=== PATIENT | male | born 1960 | race Caucasian/White ===

== ENCOUNTER → 2016-09-08 | Outpatient (REF) | payer BC ==
[~2016-09-08] MED LIST: /PRAV20TA PO; /PREG100CA PO; ADVAIR200 INHALATION; ALBUTEROL INHALATION; ASPI81TA85 PO; CARV3.12 PO; CARV6.25 PO; CILO100T PO; DIABETA PO; DIABETA5 PO; EPIP0.3I10 IJ; GLUCCOSEAC TOPICAL; IBUP200C PO; LANTINJ4 SC; LASI20TA PO; LISI5TAB PO; METF1000 PO; METFORM100 PO; MULTTAB PO; OMEP20CA3 PO; SOMA350T PO; TOPR25TA PO; TRAM37.5 PO; VICO5TAB PO
[2016-09-08 11:40] LABS: ALBUMIN 3.5 GM/DL (3.2-5.2); ALBUMIN/GLOBULIN RATIO 1.13 (1.00-1.93); BILIRUBIN,TOTAL 0.3 MG/DL (0.2-1.0); CALCIUM LEVEL 9.3 MG/DL (8.5-10.1); CREATININE FOR GFR 1.63 MG/DL (0.70-1.30); GLOMERULAR FILTRATION RATE 46.7 (>56); TOTAL PROTEIN 6.6 GM/DL (6.4-8.2)
[2016-09-08 11:44] LABS: POTASSIUM SERUM 5.2 MEQ/L (3.5-5.1)
== END ==
LOC: M SFHCCLAY 07:25
PROVIDERS: ATTEND Family Medicine
DX: E11.40 Type 2 diabetes mellitus with diabetic neuropathy, unspecified (principal); R19.7 Diarrhea, unspecified

== ENCOUNTER → 2016-09-22 | Outpatient (REF) | payer BC ==
[2016-09-22 11:56] LABS: MEAN CORPUSCULAR HEMOGLOBIN 27.8 pg (27.0-33.0); MEAN CORPUSCULAR HGB CONC 32.5 g/dl (32.0-36.5); MEAN CORPUSCULAR VOLUME 85.6 fl (80.0-96.0); PLATELET COUNT, AUTOMATED 180 k/mm3 (150-450); RED CELL DISTRIBUTION WIDTH 13.6 % (11.5-14.5); WHITE BLOOD COUNT 9.4 K/mm3 (4.0-10.0)
[2016-09-22 12:15] LABS: CALCIUM LEVEL 8.3 MG/DL (8.5-10.1); CREATININE FOR GFR 1.52 MG/DL (0.70-1.30); GLOMERULAR FILTRATION RATE 50.6 (>56); POTASSIUM SERUM 4.4 MEQ/L (3.5-5.1)
[2016-09-22 13:31] LABS: BANDS 1 % (< 11); BASOPHILS 2 % (0-4); EOSINOPHILS 3 % (0-5)
[2016-09-22 13:34] LABS: ANISOCYTOSIS 1+; HYPOCHROMASIA 1+
== END ==
LOC: M SFHCCLAY 07:53
PROVIDERS: ATTEND Family Medicine
DX: L03.115 Cellulitis of right lower limb (principal); L97.511 Non-pressure chronic ulcer of other part of right foot limited to breakdown of skin

== ENCOUNTER 2017-10-06 00:06 | Inpatient (IN) | payer BC, OTHER ==
[2017-10-06 02:24] LABS: BASO % 0.1 % (0.0-1.0); HEMATOCRIT 33.7 % (42.0-52.0); HEMOGLOBIN 10.8 g/dl (13.5-17.5); IMMATURE GRANULOCYTE % 0.4 % (0-3.0); LYMPH # 0.5 10^3/uL (1.5-4.5); LYMPH % 3.2 % (24.0-44.0); MEAN CORPUSCULAR HEMOGLOBIN 26.8 pg (27.0-33.0); MEAN CORPUSCULAR VOLUME 83.6 fl (80.0-96.0); MONO # 0.5 10^3/uL (0.0-0.8); MONO % 3.4 % (0.0-5.0); NEUTROPHILS % 92.9 % (36.0-66.0); PLATELET COUNT, AUTOMATED 179 10^3/uL (150-450); RED BLOOD COUNT 4.03 10^6/uL (4.30-6.10); RED CELL DISTRIBUTION WIDTH 14.6 % (11.5-14.5)
[2017-10-06] MEDS ORDERED: ONDANSETRON 4MG/2ML VIAL (J2405) IV (02:45)
[2017-10-06 02:47] LABS: ANION GAP 9 MEQ/L (8-16); BLOOD UREA NITROGEN 73 MG/DL (7-18); CALCIUM LEVEL 8.5 MG/DL (8.5-10.1); CARBON DIOXIDE LEVEL 22 MEQ/L (21-32); CHLORIDE LEVEL 100 MEQ/L (98-107); CK-MB VALUE MASS 6.8 NG/ML (<3.6); CPK CREATINE PHOSPHOKINASE 485 U/L (39-308); CREATININE FOR GFR 2.79 MG/DL (0.70-1.30); GLUCOSE, FASTING 313 MG/DL (70-100); MAGNESIUM LEVEL 2.2 MG/DL (1.8-2.4); SODIUM LEVEL 131 MEQ/L (136-145); TROPONIN I 0.26 NG/ML (< 0.10)
[2017-10-06 02:50] LABS: POTASSIUM SERUM 5.9 MEQ/L (3.5-5.1)
[2017-10-06] MEDS ORDERED: DEXTROSE 50% 50 ML SYRINGE IV ×2 (03:00→09:00)
[2017-10-06] MEDS ORDERED: cefTRIAXone SOD 1 GM in D5W MINI-BAG PLUS 50 ML IV ×2 (03:00→09:00)
[2017-10-06] MEDS ORDERED: GLUCOSE 4 GM CHEW TABLET PO (03:00)
[2017-10-06] MEDS ORDERED: ALBUTEROL SULFATE 2.5 MG/0.5 ML INH NEB SOLN NEB (03:00)
[2017-10-06] MEDS ORDERED: GLUCAGON FOR INJ 1 MG VIAL (J1610) SC (03:00)
[2017-10-06] MEDS: SODIUM CHLORIDE 0.9% 1000 ML IV (03:08)
[2017-10-06] MEDS: NS 1,000 ML IV (04:11)
[2017-10-06] MEDS: PIPERACILLIN/TAZOBACTAM SOD 2.25 GM in D5W MINI-BAG PLUS 50 ML IV ×3 (06:52→18:03)
[2017-10-06] MEDS: IPRATROPIUM 0.5MG/ALBUTEROL 2.5MG INH SOL UD 3ML (DUONEB)(J7620) NEB ×3 (07:24→23:54)
[2017-10-06] MEDS: SYMBICORT 80/4.5MCG INHALER 6GM INH ×2 (07:24→20:51)
[2017-10-06 07:46] LABS: BASO % 0.1 % (0.0-1.0); HEMATOCRIT 31.4 % (42.0-52.0); IMMATURE GRANULOCYTE % 0.4 % (0-3.0); LYMPH # 0.4 10^3/uL (1.5-4.5); LYMPH % 3.2 % (24.0-44.0); MEAN CORPUSCULAR HEMOGLOBIN 26.5 pg (27.0-33.0); MEAN CORPUSCULAR HGB CONC 31.8 g/dl (32.0-36.5); MEAN CORPUSCULAR VOLUME 83.1 fl (80.0-96.0); MONO # 0.3 10^3/uL (0.0-0.8); MONO % 2.4 % (0.0-5.0); NEUTROPHILS # 10.6 10^3/uL (1.8-7.7); NEUTROPHILS % 93.9 % (36.0-66.0); PLATELET COUNT, AUTOMATED 181 10^3/uL (150-450); RED BLOOD COUNT 3.78 10^6/uL (4.30-6.10); RED CELL DISTRIBUTION WIDTH 14.6 % (11.5-14.5); WHITE BLOOD COUNT 11.3 10^3/uL (4.0-10.0)
[2017-10-06 08:04] LABS: LACTIC ACID SEPSIS PROTOCOL 1.4 MMOL/L (0.4-2.0)
[2017-10-06 08:06] LABS: ALBUMIN 1.9 GM/DL (3.2-5.2); ALKALINE PHOSPHATASE 94 U/L (45-117); ALT/SGPT 21 U/L (12-78); ANION GAP 11 MEQ/L (8-16); AST/SGOT 24 U/L (7-37); BILIRUBIN,TOTAL 0.7 MG/DL (0.2-1.0); BLOOD UREA NITROGEN 75 MG/DL (7-18); CARBON DIOXIDE LEVEL 19 MEQ/L (21-32); CHLORIDE LEVEL 102 MEQ/L (98-107); CK-MB VALUE MASS 5.8 NG/ML (<3.6); CPK CREATINE PHOSPHOKINASE 398 U/L (39-308); CREATININE FOR GFR 2.61 MG/DL (0.70-1.30); GLUCOSE, FASTING 370 MG/DL (70-100); MB/CK RELATIVE INDEX 1.45 (< OR =4); SODIUM LEVEL 132 MEQ/L (136-145); TOTAL PROTEIN 6.7 GM/DL (6.4-8.2); TROPONIN I 0.13 NG/ML (< 0.10)
[2017-10-06 08:36] LABS: POTASSIUM SERUM 6.1 MEQ/L (3.5-5.1)
[2017-10-06] MEDS: AZITHROMYCIN 250 MG TAB PO (08:44)
[2017-10-06] MEDS: ASPIRIN 81 MG ENTERIC TAB PO (08:44)
[2017-10-06] MEDS: PRAVASTATIN 20 MG TAB PO (08:44)
[2017-10-06] MEDS: PREGABALIN 100 MG CAP (LYRICA) PO ×2 (08:44→21:33)
[2017-10-06] MEDS: HEPARIN SOD (PORCINE) 5000 UNITS/ML VIAL SC ×2 (08:45→21:34)
[2017-10-06] MEDS: LEVEMIR (INSULIN DETEMIR) 1 UNITS/0.01ML SC (08:45)
[2017-10-06] MEDS: ALBUTEROL SULFATE 2.5 MG/0.5 ML INH NEB SOLN NEB (09:20)
[2017-10-06 09:43] LABS: ABG BASE EXCESS -8.4 (-2.0-2.0); ABG HCO3 17.8 MEQ/L (22.0-26.0); ABG O2 SATURATION 97.9 % (95.0-99.0); ABG PARTIAL PRESSURE CO2 38.9 mmHg (35.0-45.0); ABG PARTIAL PRESSURE O2 111.7 mmHg (75.0-100.0); ABG STANDARD HCO3 17.7 MEQ/L (22.0-26.0); ABG pH (ARTERIAL) 7.278 UNITS (7.350-7.450)
[2017-10-06] MEDS: CALCIUM GLUCONATE 1,000 MG in D5W MINI-BAG PLUS 100 ML IV (09:43)
[2017-10-06] MEDS: SOD POLYSTYRENE SULFONATE SUSP 15 GM/60 ML UD PO (09:43)
[2017-10-06] MEDS: HumaLOG INSULIN (NovoLOG) PER UNIT SC (12:33)
[2017-10-06 13:04] LABS: ANION GAP 12 MEQ/L (8-16); BLOOD UREA NITROGEN 83 MG/DL (7-18); CALCIUM LEVEL 7.8 MG/DL (8.5-10.1); CARBON DIOXIDE LEVEL 19 MEQ/L (21-32); CHLORIDE LEVEL 102 MEQ/L (98-107); CK-MB VALUE MASS 6.3 NG/ML (<3.6); CPK CREATINE PHOSPHOKINASE 393 U/L (39-308); CREATININE FOR GFR 2.58 MG/DL (0.70-1.30); GLOMERULAR FILTRATION RATE 27.4 (>56); NT-PRO BNP 2950 PG/ML (<125); SODIUM LEVEL 133 MEQ/L (136-145); TROPONIN I 0.09 NG/ML (< 0.10)
[2017-10-06 13:06] LABS: GLUCOSE, FASTING 467 MG/DL (70-100)
[2017-10-06 13:16] LABS: BEDSIDE GLUCOSE 337 MG/DL (70-105)
[2017-10-06 13:16] LABS: BEDSIDE GLUCOSE 465 MG/DL (70-105)
[2017-10-06] MEDS: SODIUM BICARBONATE 75 MEQ in NS 0.45% 1,000 ML IV (14:28)
[2017-10-06] MEDS ORDERED: LEVEMIR (INSULIN DETEMIR) 1 UNITS/0.01ML SC (15:00)
[2017-10-06] MEDS: NS 500 ML IV (17:00)
[2017-10-06] MEDS: INSULIN HUMAN REGULAR 100 UNITS in NS 99 ML IV (17:05)
[2017-10-06] MEDS: INSULIN IV RATE CHANGE DOCUMENTATION ML/HR XX ×3 (17:05→20:35)
[2017-10-06] MEDS: HumuLIN R (REGULAR) INSULIN (NovoLIN R) **100U/ML** PER UNIT IV (17:10)
[2017-10-06 17:46] LABS: BEDSIDE GLUCOSE 564 MG/DL (70-105)
[2017-10-06 18:01] LABS: ANION GAP 11 MEQ/L (8-16); BLOOD UREA NITROGEN 89 MG/DL (7-18); CALCIUM LEVEL 7.6 MG/DL (8.5-10.1); CARBON DIOXIDE LEVEL 21 MEQ/L (21-32); CHLORIDE LEVEL 100 MEQ/L (98-107); CREATININE FOR GFR 2.81 MG/DL (0.70-1.30); GLOMERULAR FILTRATION RATE 24.8 (>56); SODIUM LEVEL 132 MEQ/L (136-145)
[2017-10-06 18:06] LABS: GLUCOSE, FASTING 580 MG/DL (70-100); POTASSIUM SERUM 5.9 MEQ/L (3.5-5.1)
[2017-10-06 18:40] LABS: BEDSIDE GLUCOSE 538 MG/DL (70-105)
[2017-10-06 19:22] LABS: BEDSIDE GLUCOSE CONFIRMATION 523 MG/DL (LESS THAN 200)
[2017-10-06 19:30] LABS: BEDSIDE GLUCOSE 491 MG/DL (70-105)
[2017-10-06 20:34] LABS: BEDSIDE GLUCOSE 457 MG/DL (70-105)
[2017-10-06 20:51] LABS: CREATININE,RANDOM URINE 73.6 MG/DL
[2017-10-06 20:51] LABS: POTASSIUM RANDOM URINE 37.1 MEQ/L; SODIUM,RANDOM URINE 24 MEQ/L
[2017-10-06] MEDS ORDERED: HumaLOG INSULIN (NovoLOG) PER UNIT SC (21:00)
[2017-10-06 21:53] LABS: BEDSIDE GLUCOSE 387 MG/DL (70-105)
[2017-10-06] MEDS: PATIROMER SORBITEX CALCIUM 8.4 GM POWDER PACKET (VELTASSA) PO (23:45)
[2017-10-07] MEDS: PIPERACILLIN/TAZOBACTAM SOD 2.25 GM in D5W MINI-BAG PLUS 50 ML IV ×4 (00:02→17:25)
[2017-10-07] MEDS: INSULIN HUMAN REGULAR 100 UNITS in NS 99 ML IV (00:40)
[2017-10-07 00:49] LABS: BEDSIDE GLUCOSE 278 MG/DL (70-105)
[2017-10-07 00:49] LABS: BEDSIDE GLUCOSE 237 MG/DL (70-105)
[2017-10-07 00:49] LABS: BEDSIDE GLUCOSE 305 MG/DL (70-105)
[2017-10-07] MEDS: FUROSEMIDE 20 MG/2 ML VIAL (J1940) IV (00:51)
[2017-10-07 02:23] LABS: BEDSIDE GLUCOSE 579 MG/DL (70-105)
[2017-10-07 02:26] LABS: BEDSIDE GLUCOSE 192 MG/DL (70-105)
[2017-10-07 03:19] LABS: BEDSIDE GLUCOSE 166 MG/DL (70-105)
[2017-10-07 04:22] LABS: BEDSIDE GLUCOSE 134 MG/DL (70-105)
[2017-10-07 04:35] LABS: BASO % 0.1 % (0.0-1.0); HEMATOCRIT 30.5 % (42.0-52.0); HEMOGLOBIN 9.9 g/dl (13.5-17.5); IMMATURE GRANULOCYTE % 0.7 % (0-3.0); LYMPH # 0.7 10^3/uL (1.5-4.5); LYMPH % 6.9 % (24.0-44.0); MEAN CORPUSCULAR HEMOGLOBIN 26.7 pg (27.0-33.0); MEAN CORPUSCULAR HGB CONC 32.5 g/dl (32.0-36.5); MEAN CORPUSCULAR VOLUME 82.2 fl (80.0-96.0); MONO # 0.5 10^3/uL (0.0-0.8); MONO % 4.8 % (0.0-5.0); NEUTROPHILS # 8.4 10^3/uL (1.8-7.7); NEUTROPHILS % 87.5 % (36.0-66.0); PLATELET COUNT, AUTOMATED 192 10^3/uL (150-450); RED BLOOD COUNT 3.71 10^6/uL (4.30-6.10); RED CELL DISTRIBUTION WIDTH 14.3 % (11.5-14.5); WHITE BLOOD COUNT 9.7 10^3/uL (4.0-10.0)
[2017-10-07 05:00] LABS: ANION GAP 11 MEQ/L (8-16); BLOOD UREA NITROGEN 98 MG/DL (7-18); CALCIUM LEVEL 8.6 MG/DL (8.5-10.1); CARBON DIOXIDE LEVEL 22 MEQ/L (21-32); CHLORIDE LEVEL 104 MEQ/L (98-107); CREATININE FOR GFR 2.55 MG/DL (0.70-1.30); GLOMERULAR FILTRATION RATE 27.7 (>56); GLUCOSE, FASTING 122 MG/DL (70-100); POTASSIUM SERUM 4.2 MEQ/L (3.5-5.1); SODIUM LEVEL 137 MEQ/L (136-145)
[2017-10-07 05:15] LABS: BEDSIDE GLUCOSE 122 MG/DL (70-105)
[2017-10-07 07:01] LABS: BEDSIDE GLUCOSE 125 MG/DL (70-105)
[2017-10-07 07:01] LABS: BEDSIDE GLUCOSE 118 MG/DL (70-105)
[2017-10-07] MEDS: SYMBICORT 80/4.5MCG INHALER 6GM INH ×2 (07:49→20:17)
[2017-10-07] MEDS: IPRATROPIUM 0.5MG/ALBUTEROL 2.5MG INH SOL UD 3ML (DUONEB)(J7620) NEB ×3 (08:00→23:59)
[2017-10-07 08:19] LABS: BEDSIDE GLUCOSE 148 MG/DL (70-105)
[2017-10-07] MEDS: PRAVASTATIN 20 MG TAB PO (08:40)
[2017-10-07] MEDS: PREGABALIN 100 MG CAP (LYRICA) PO ×2 (08:40→21:52)
[2017-10-07] MEDS: ASPIRIN 81 MG ENTERIC TAB PO (08:40)
[2017-10-07] MEDS: AZITHROMYCIN 250 MG TAB PO (08:40)
[2017-10-07] MEDS: HEPARIN SOD (PORCINE) 5000 UNITS/ML VIAL SC ×2 (08:41→21:54)
[2017-10-07] MEDS: LEVEMIR (INSULIN DETEMIR) 1 UNITS/0.01ML SC ×3 (08:41→21:53)
[2017-10-07 10:34] LABS: BEDSIDE GLUCOSE 302 MG/DL (70-105)
[2017-10-07 11:22] LABS: BEDSIDE GLUCOSE 330 MG/DL (70-105)
[2017-10-07] MEDS: HumaLOG INSULIN (NovoLOG) PER UNIT SC ×3 (11:43→21:53)
[2017-10-07 12:27] LABS: URIC ACID 11.8 MG/DL (3.5-7.2)
[2017-10-07 16:22] LABS: BEDSIDE GLUCOSE 419 MG/DL (70-105)
[2017-10-07 16:41] LABS: OSMOLALITY URINE 522 MOSM/KG (500-800)
[2017-10-07 16:59] LABS: CREATININE,RANDOM URINE 65.2 MG/DL; SODIUM,RANDOM URINE 34 MEQ/L
[2017-10-07 16:59] LABS: URIC ACID,RANDOM URINE 54.2 MG/DL
[2017-10-07] MEDS: ALLOPURINOL 300 MG TAB PO (19:24)
[2017-10-07 22:03] LABS: BEDSIDE GLUCOSE 353 MG/DL (70-105)
[2017-10-08] MEDS: PIPERACILLIN/TAZOBACTAM SOD 2.25 GM in D5W MINI-BAG PLUS 50 ML IV ×5 (00:16→23:17)
[2017-10-08 04:33] LABS: EOS % 0.4 % (0.0-3.0); HEMATOCRIT 30.1 % (42.0-52.0); HEMOGLOBIN 9.6 g/dl (13.5-17.5); IMMATURE GRANULOCYTE % 1.5 % (0-3.0); LYMPH # 1.1 10^3/uL (1.5-4.5); LYMPH % 20.1 % (24.0-44.0); MEAN CORPUSCULAR HEMOGLOBIN 26.2 pg (27.0-33.0); MEAN CORPUSCULAR HGB CONC 31.9 g/dl (32.0-36.5); MONO # 0.5 10^3/uL (0.0-0.8); MONO % 9.3 % (0.0-5.0); NEUTROPHILS # 3.7 10^3/uL (1.8-7.7); NEUTROPHILS % 68.7 % (36.0-66.0); PLATELET COUNT, AUTOMATED 222 10^3/uL (150-450); RED BLOOD COUNT 3.67 10^6/uL (4.30-6.10); RED CELL DISTRIBUTION WIDTH 14.4 % (11.5-14.5); WHITE BLOOD COUNT 5.4 10^3/uL (4.0-10.0)
[2017-10-08 04:50] LABS: ANION GAP 8 MEQ/L (8-16); BLOOD UREA NITROGEN 102 MG/DL (7-18); CALCIUM LEVEL 8.4 MG/DL (8.5-10.1); CARBON DIOXIDE LEVEL 23 MEQ/L (21-32); CHLORIDE LEVEL 105 MEQ/L (98-107); CREATININE FOR GFR 2.41 MG/DL (0.70-1.30); GLOMERULAR FILTRATION RATE 29.6 (>56); GLUCOSE, FASTING 260 MG/DL (70-100); POTASSIUM SERUM 4.5 MEQ/L (3.5-5.1); SODIUM LEVEL 136 MEQ/L (136-145)
[2017-10-08] MEDS: HumaLOG INSULIN (NovoLOG) PER UNIT SC ×4 (07:49→20:29)
[2017-10-08] MEDS: ALLOPURINOL 300 MG TAB PO (07:50)
[2017-10-08] MEDS: AZITHROMYCIN 250 MG TAB PO (07:50)
[2017-10-08] MEDS: HEPARIN SOD (PORCINE) 5000 UNITS/ML VIAL SC ×2 (07:50→20:36)
[2017-10-08] MEDS: PREGABALIN 100 MG CAP (LYRICA) PO ×2 (07:51→20:36)
[2017-10-08] MEDS: ASPIRIN 81 MG ENTERIC TAB PO (07:51)
[2017-10-08] MEDS: PRAVASTATIN 20 MG TAB PO (07:51)
[2017-10-08] MEDS: IPRATROPIUM 0.5MG/ALBUTEROL 2.5MG INH SOL UD 3ML (DUONEB)(J7620) NEB ×4 (08:00→23:48)
[2017-10-08] MEDS: SYMBICORT 80/4.5MCG INHALER 6GM INH ×2 (08:06→20:02)
[2017-10-08] MEDS: LEVEMIR (INSULIN DETEMIR) 1 UNITS/0.01ML SC ×2 (08:17→20:37)
[2017-10-08 10:34] LABS: ESTIMATED AVERAGE GLUCOSE 209 MG/DL (60-110); HEMOGLOBIN A1c 8.9 %
[2017-10-08] MEDS: FUROSEMIDE 100 MG/10 ML VIAL (J1940) IV (10:57)
[2017-10-08 11:44] LABS: BEDSIDE GLUCOSE 167 MG/DL (70-105)
[2017-10-08 17:18] LABS: BEDSIDE GLUCOSE 126 MG/DL (70-105)
[2017-10-08 20:44] LABS: BEDSIDE GLUCOSE 171 MG/DL (70-105)
[2017-10-09] MEDS: PIPERACILLIN/TAZOBACTAM SOD 2.25 GM in D5W MINI-BAG PLUS 50 ML IV ×3 (05:28→17:16)
[2017-10-09 06:04] LABS: BASO % 0.2 % (0.0-1.0); EOS # 0.2 10^3/uL (0.0-0.50); HEMATOCRIT 31.8 % (42.0-52.0); IMMATURE GRANULOCYTE % 2.6 % (0-3.0); LYMPH # 1.6 10^3/uL (1.5-4.5); LYMPH % 37.9 % (24.0-44.0); MEAN CORPUSCULAR HEMOGLOBIN 26.2 pg (27.0-33.0); MEAN CORPUSCULAR HGB CONC 31.4 g/dl (32.0-36.5); MEAN CORPUSCULAR VOLUME 83.5 fl (80.0-96.0); MONO # 0.5 10^3/uL (0.0-0.8); MONO % 12.8 % (0.0-5.0); NEUTROPHILS # 1.8 10^3/uL (1.8-7.7); NEUTROPHILS % 42.5 % (36.0-66.0); PLATELET COUNT, AUTOMATED 245 10^3/uL (150-450); RED BLOOD COUNT 3.81 10^6/uL (4.30-6.10); RED CELL DISTRIBUTION WIDTH 14.5 % (11.5-14.5); WHITE BLOOD COUNT 4.2 10^3/uL (4.0-10.0)
[2017-10-09 06:31] LABS: ANION GAP 8 MEQ/L (8-16); BLOOD UREA NITROGEN 101 MG/DL (7-18); C REACTIVE PROTEIN QUANTITATIV 6.99 MG/DL (0.00-0.30); CALCIUM LEVEL 8.7 MG/DL (8.5-10.1); CARBON DIOXIDE LEVEL 25 MEQ/L (21-32); CHLORIDE LEVEL 111 MEQ/L (98-107); CREATININE FOR GFR 1.99 MG/DL (0.70-1.30); GLOMERULAR FILTRATION RATE 36.9 (>56); GLUCOSE, FASTING 94 MG/DL (70-100); POTASSIUM SERUM 4.3 MEQ/L (3.5-5.1); SODIUM LEVEL 144 MEQ/L (136-145); URIC ACID 9.8 MG/DL (3.5-7.2)
[2017-10-09] MEDS: HumaLOG INSULIN (NovoLOG) PER UNIT SC ×4 (07:48→21:16)
[2017-10-09] MEDS: IPRATROPIUM 0.5MG/ALBUTEROL 2.5MG INH SOL UD 3ML (DUONEB)(J7620) NEB ×2 (08:00→15:02)
[2017-10-09] MEDS: ASPIRIN 81 MG ENTERIC TAB PO (09:00)
[2017-10-09] MEDS: ALLOPURINOL 300 MG TAB PO (09:00)
[2017-10-09] MEDS: PREGABALIN 100 MG CAP (LYRICA) PO ×2 (09:00→21:15)
[2017-10-09] MEDS: AZITHROMYCIN 250 MG TAB PO (09:00)
[2017-10-09] MEDS: PRAVASTATIN 20 MG TAB PO (09:00)
[2017-10-09] MEDS: HEPARIN SOD (PORCINE) 5000 UNITS/ML VIAL SC ×2 (09:01→21:16)
[2017-10-09] MEDS: SYMBICORT 80/4.5MCG INHALER 6GM INH ×2 (09:23→20:06)
[2017-10-09] MEDS: FUROSEMIDE 100 MG/10 ML VIAL (J1940) IV (10:50)
[2017-10-09] MEDS: LEVEMIR (INSULIN DETEMIR) 1 UNITS/0.01ML SC ×2 (10:50→21:17)
[2017-10-09 12:30] LABS: BEDSIDE GLUCOSE 79 MG/DL (70-105)
[2017-10-09 17:07] LABS: BEDSIDE GLUCOSE 86 MG/DL (70-105)
[2017-10-09] MEDS: ACETAMINOPHEN 500 MG TAB PO (17:58)
[2017-10-09 20:46] LABS: BEDSIDE GLUCOSE 127 MG/DL (70-105)
[2017-10-10] MEDS: PIPERACILLIN/TAZOBACTAM SOD 2.25 GM in D5W MINI-BAG PLUS 50 ML IV ×4 (00:21→17:15)
[2017-10-10 05:48] LABS: BEDSIDE GLUCOSE 55 MG/DL (70-105)
[2017-10-10 06:15] LABS: BEDSIDE GLUCOSE 79 MG/DL (70-105)
[2017-10-10 06:47] LABS: BASO % 0.6 % (0.0-1.0); EOS # 0.4 10^3/uL (0.0-0.50); EOS % 9.2 % (0.0-3.0); HEMATOCRIT 34.9 % (42.0-52.0); HEMOGLOBIN 10.9 g/dl (13.5-17.5); IMMATURE GRANULOCYTE % 4.2 % (0-3.0); LYMPH # 1.5 10^3/uL (1.5-4.5); LYMPH % 31.9 % (24.0-44.0); MEAN CORPUSCULAR HEMOGLOBIN 26.5 pg (27.0-33.0); MEAN CORPUSCULAR HGB CONC 31.2 g/dl (32.0-36.5); MEAN CORPUSCULAR VOLUME 84.7 fl (80.0-96.0); MONO # 0.6 10^3/uL (0.0-0.8); MONO % 12.9 % (0.0-5.0); NEUTROPHILS % 41.2 % (36.0-66.0); PLATELET COUNT, AUTOMATED 313 10^3/uL (150-450); RED BLOOD COUNT 4.12 10^6/uL (4.30-6.10); RED CELL DISTRIBUTION WIDTH 14.5 % (11.5-14.5); WHITE BLOOD COUNT 4.8 10^3/uL (4.0-10.0)
[2017-10-10 07:06] LABS: ANION GAP 3 MEQ/L (8-16); BLOOD UREA NITROGEN 81 MG/DL (7-18); C REACTIVE PROTEIN QUANTITATIV 4.18 MG/DL (0.00-0.30); CARBON DIOXIDE LEVEL 30 MEQ/L (21-32); CHLORIDE LEVEL 110 MEQ/L (98-107); CREATININE FOR GFR 1.55 MG/DL (0.70-1.30); GLOMERULAR FILTRATION RATE 49.3 (>56); GLUCOSE, FASTING 46 MG/DL (70-100); POTASSIUM SERUM 4.7 MEQ/L (3.5-5.1); SODIUM LEVEL 143 MEQ/L (136-145)
[2017-10-10] MEDS: HumaLOG INSULIN (NovoLOG) PER UNIT SC ×4 (07:30→21:40)
[2017-10-10] MEDS: IPRATROPIUM 0.5MG/ALBUTEROL 2.5MG INH SOL UD 3ML (DUONEB)(J7620) NEB ×4 (08:00→22:55)
[2017-10-10] MEDS: LEVEMIR (INSULIN DETEMIR) 1 UNITS/0.01ML SC ×2 (08:27→21:41)
[2017-10-10] MEDS: AZITHROMYCIN 250 MG TAB PO (08:38)
[2017-10-10] MEDS: FUROSEMIDE 40 MG TAB PO (08:38)
[2017-10-10] MEDS: PREGABALIN 100 MG CAP (LYRICA) PO ×2 (08:38→21:39)
[2017-10-10] MEDS: ALLOPURINOL 300 MG TAB PO (08:38)
[2017-10-10] MEDS: PRAVASTATIN 20 MG TAB PO (08:38)
[2017-10-10] MEDS: ASPIRIN 81 MG ENTERIC TAB PO (08:38)
[2017-10-10] MEDS: HEPARIN SOD (PORCINE) 5000 UNITS/ML VIAL SC ×2 (08:39→21:40)
[2017-10-10] MEDS: SYMBICORT 80/4.5MCG INHALER 6GM INH ×2 (09:07→20:35)
[2017-10-10 11:35] LABS: BEDSIDE GLUCOSE 112 MG/DL (70-105)
[2017-10-10 17:15] LABS: BEDSIDE GLUCOSE 186 MG/DL (70-105)
[2017-10-10 20:26] LABS: BEDSIDE GLUCOSE 272 MG/DL (70-105)
[2017-10-11] MEDS: PIPERACILLIN/TAZOBACTAM SOD 2.25 GM in D5W MINI-BAG PLUS 50 ML IV ×3 (00:40→12:44)
[2017-10-11 05:40] LABS: HEMATOCRIT 33.7 % (42.0-52.0); HEMOGLOBIN 10.8 g/dl (13.5-17.5); MEAN CORPUSCULAR HEMOGLOBIN 26.7 pg (27.0-33.0); MEAN CORPUSCULAR VOLUME 83.2 fl (80.0-96.0); PLATELET COUNT, AUTOMATED 314 10^3/uL (150-450); RED BLOOD COUNT 4.05 10^6/uL (4.30-6.10); RED CELL DISTRIBUTION WIDTH 14.4 % (11.5-14.5); WHITE BLOOD COUNT 5.3 10^3/uL (4.0-10.0)
[2017-10-11 05:44] LABS: ADD MANUAL DIFFER YES; DIFF SLIDE NUMBER 14; POS COUNT POS FLAG; POSITIVE MORPH POS FLAG
[2017-10-11 05:54] LABS: ANION GAP 4 MEQ/L (8-16); BLOOD UREA NITROGEN 65 MG/DL (7-18); C REACTIVE PROTEIN QUANTITATIV 3.36 MG/DL (0.00-0.30); CALCIUM LEVEL 8.7 MG/DL (8.5-10.1); CARBON DIOXIDE LEVEL 28 MEQ/L (21-32); CHLORIDE LEVEL 108 MEQ/L (98-107); CREATININE FOR GFR 1.54 MG/DL (0.70-1.30); GLOMERULAR FILTRATION RATE 49.6 (>56); GLUCOSE, FASTING 204 MG/DL (70-100); SODIUM LEVEL 140 MEQ/L (136-145)
[2017-10-11 05:55] LABS: POTASSIUM SERUM 5.5 MEQ/L (3.5-5.1)
[2017-10-11 06:56] LABS: BANDS 5 % (< 11); EOSINOPHILS 12 % (0-5); LYMPHOCYTES 26 % (16-52); MONOCYTES 2 % (0-8); MYELOCYTES 4 % (0-0); NEUTROPHILS 51 % (35-75); PLATELET ESTIMATE NORMAL (NORMAL); POIKILOCYTOSIS 1+
[2017-10-11] MEDS: IPRATROPIUM 0.5MG/ALBUTEROL 2.5MG INH SOL UD 3ML (DUONEB)(J7620) NEB (07:58)
[2017-10-11] MEDS: SYMBICORT 80/4.5MCG INHALER 6GM INH (07:58)
[2017-10-11] MEDS: HEPARIN SOD (PORCINE) 5000 UNITS/ML VIAL SC (08:20)
[2017-10-11] MEDS: HumaLOG INSULIN (NovoLOG) PER UNIT SC ×2 (08:21→12:45)
[2017-10-11] MEDS: ASPIRIN 81 MG ENTERIC TAB PO (08:21)
[2017-10-11] MEDS: ALLOPURINOL 300 MG TAB PO (08:21)
[2017-10-11] MEDS: AZITHROMYCIN 250 MG TAB PO (08:21)
[2017-10-11] MEDS: LEVEMIR (INSULIN DETEMIR) 1 UNITS/0.01ML SC (08:21)
[2017-10-11] MEDS: PRAVASTATIN 20 MG TAB PO (08:21)
[2017-10-11] MEDS: PREGABALIN 100 MG CAP (LYRICA) PO (08:22)
[2017-10-11] MEDS: FUROSEMIDE 40 MG TAB PO (08:22)
[2017-10-11 10:17] LABS: ANION GAP 6 MEQ/L (8-16); BLOOD UREA NITROGEN 61 MG/DL (7-18); CALCIUM LEVEL 8.4 MG/DL (8.5-10.1); CARBON DIOXIDE LEVEL 28 MEQ/L (21-32); CHLORIDE LEVEL 106 MEQ/L (98-107); CREATININE FOR GFR 1.61 MG/DL (0.70-1.30); GLOMERULAR FILTRATION RATE 47.2 (>56); GLUCOSE, FASTING 259 MG/DL (70-100); SODIUM LEVEL 140 MEQ/L (136-145)
[2017-10-11 10:21] LABS: POTASSIUM SERUM 5.5 MEQ/L (3.5-5.1)
[2017-10-11] MEDS: SOD POLYSTYRENE SULFONATE SUSP 15 GM/60 ML UD PO (11:19)
[2017-10-11 12:28] LABS: BEDSIDE GLUCOSE 246 MG/DL (70-105)
== END 2017-10-11 14:04 | disposition home or self-care (01) | DRG 720 ==
LOC: M MSPAV 10-08 14:46 → M ED 00:06 → M ED INP 02:44 → M PCU 04:50 → M ICU 16:36
DX: A41.9 Sepsis, unspecified organism (principal); I50.43 Acute on chronic combined systolic (congestive) and diastolic (congestive) heart failure; E87.2 Acidosis; J18.9 Pneumonia, unspecified organism; I42.9 Cardiomyopathy, unspecified; N17.9 Acute kidney failure, unspecified; E83.42 Hypomagnesemia; I13.0 Hypertensive heart and chronic kidney disease with heart failure and stage 1 through stage 4 chronic kidney disease, or unspecified chronic kidney disease; N18.3 Chronic kidney disease, stage 3 (moderate); E87.5 Hyperkalemia; E87.1 Hypo-osmolality and hyponatremia; E11.319 Type 2 diabetes mellitus with unspecified diabetic retinopathy without macular edema; J44.9 Chronic obstructive pulmonary disease, unspecified; I08.0 Rheumatic disorders of both mitral and aortic valves; E11.65 Type 2 diabetes mellitus with hyperglycemia; Z79.899 Other long term (current) drug therapy; Z79.82 Long term (current) use of aspirin; E78.5 Hyperlipidemia, unspecified; G47.30 Sleep apnea, unspecified; K21.9 Gastro-esophageal reflux disease without esophagitis; Z88.8 Allergy status to other drugs, medicaments and biological substances; Z91.038 Other insect allergy status; Z91.013 Allergy to seafood; Z79.4 Long term (current) use of insulin; R65.20 Severe sepsis without septic shock

== ENCOUNTER → 2017-10-19 | Outpatient (REF) | payer BC, OTHER ==
[2017-10-19 14:41] LABS: FOLATE 6.2 NG/ML; VITAMIN B12 LEVEL 795 PG/ML
[2017-10-19 14:57] LABS: URINE TOTAL PROTEIN 168.6 MG/DL (0-12)
[2017-10-19 14:58] LABS: FERRITIN 112 NG/ML (26-388); IRON (FE) 27 UG/DL (65-175); PERCENT SATURATION 9.2 % (19.7-50.0); TOTAL IRON BINDING CAPACITY 293 UG/DL (250-450); TOTAL PROTEIN 6.3 GM/DL (6.4-8.2)
[2017-10-19 15:14] LABS: COMPLEMENT C3 186 MG/DL (90-180); COMPLEMENT C4 33.6 MG/DL (10-40)
[2017-10-20 10:12] LABS: HEPATITIS B SURFACE ANTIBODY NEGATIVE (POSITIVE)
[2017-10-20 10:20] LABS: HEPATITIS B SURFACE ANTIGEN NEGATIVE (NEGATIVE)
[2017-10-20 10:43] LABS: HEPATITIS B CORE ANTIBODY IGM NEGATIVE (NEGATIVE)
[2017-10-23 11:26] LABS: ALBUMIN % 43.4 % (55.8-66.1); ALPHA-1-GLOBULIN % 7.7 % (2.9-4.9); ALPHA-1-GLOBULINS 2.73 GM/DL (0.17-0.41); ALPHA-2-GLOBULINS 0.49 GM/DL (0.42-0.99); ALPHA-2-GLOBULINS % 19.9 % (7.1-11.8); BETA-1-GLOBULINS 1.25 GM/DL (0.28-0.60); BETA-1-GLOBULINS % 6.8 % (4.7-7.2); BETA-2-GLOBULINS % 6.8 % (3.2-6.5); GAMMA GLOBULIN % 6.2 % (11.1-18.8)
[2017-10-23 11:27] LABS: BETA-2-GLOBULINS 0.43 GM/DL (0.19-0.55); GAMMA GLOBULINS 0.39 GM/DL (0.65-1.58)
[2017-10-24 00:09] LABS: ANCA-ATYPICAL <1:20 titer (Neg:<1:20); ANTI DOUBLE STRAND-DNA AB 1 IU/mL (0-9); ANTINUCLEAR ANTIBODIES DIRECT Negative (Negative); CYTOPLASMIC NEUTROP AB ANCA-C <1:20 titer (Neg:<1:20); PERINUCLEAR AB ANCA-P <1:20 titer (Neg:<1:20)
== END ==
LOC: M LAB REF 13:40
DX: D64.9 Anemia, unspecified (principal); R80.9 Proteinuria, unspecified
CPT/HCPCS: 82746

== ENCOUNTER → 2017-10-25 | Outpatient (REF) | payer BC, OTHER ==
[2017-10-25 19:08] LABS: URINE TOTAL PROTEIN 238.1 MG/DL (0-12)
[2017-10-25 19:44] LABS: TOTAL PROTEIN 24 HOUR URINE 4047.7 MG/24HR (50-150); TOTAL VOLUME, URINE 1700 ML
== END ==
LOC: M LAB REF 16:56
DX: R80.9 Proteinuria, unspecified (principal)
CPT/HCPCS: 81050

== ENCOUNTER → 2018-01-23 | Outpatient (REF) | payer MEDICAID ==
[2018-01-23 13:09] LABS: BASO # 0.1 10^3/uL (0.0-0.2); BASO % 1.7 % (0.0-1.0); EOS # 0.3 10^3/uL (0.0-0.50); EOS % 7.6 % (0.0-3.0); HEMATOCRIT 42.3 % (42.0-52.0); HEMOGLOBIN 14.2 g/dl (13.5-17.5); IMMATURE GRANULOCYTE % 0.9 % (0-3.0); LYMPH # 1.2 10^3/uL (1.5-4.5); LYMPH % 35.2 % (24.0-44.0); MEAN CORPUSCULAR HEMOGLOBIN 27.8 pg (27.0-33.0); MEAN CORPUSCULAR HGB CONC 33.6 g/dl (32.0-36.5); MEAN CORPUSCULAR VOLUME 82.8 fl (80.0-96.0); MONO # 0.4 10^3/uL (0.0-0.8); MONO % 11.9 % (0.0-5.0); NEUTROPHILS # 1.5 10^3/uL (1.8-7.7); NEUTROPHILS % 42.7 % (36.0-66.0); PLATELET COUNT, AUTOMATED 159 10^3/uL (150-450); RED BLOOD COUNT 5.11 10^6/uL (4.30-6.10); RED CELL DISTRIBUTION WIDTH 14.6 % (11.5-14.5); WHITE BLOOD COUNT 3.4 10^3/uL (4.0-10.0)
[2018-01-23 13:11] LABS: APPEARANCE, URINE CLEAR (CLEAR); BACTERIA, URINE AUTO NEGATIVE (NEGATIVE); BILIRUBIN, URINE AUTO NEGATIVE (NEGATIVE); BLOOD, URINE BLOOD 1+ (NEGATIVE); COLOR, URINE YELLOW (YELLOW); GLUCOSE, URINE (UA) AUTO 3+ mg/dL (NEGATIVE); KETONE, URINE AUTO NEGATIVE (NEGATIVE); LEUKOCYTE ESTERASE, URINE AUTO NEGATIVE (NEGATIVE); NITRITE, URINE AUTO NEGATIVE (NEGATIVE); PROTEIN, URINE AUTO 2+ mg/dL (NEGATIVE); RBC, URINE AUTO 1 /HPF (0-3); SPECIFIC GRAVITY URINE AUTO 1.016 (1.002-1.035); SQUAMOUS EPITHELIAL CELL UR AU 0 /HPF (0-6); UROBILINOGEN, URINE AUTO 0.2 mg/dL (0.0-2.0); WBC, URINE AUTO 0 /HPF (0-3)
[2018-01-23 13:37] LABS: PTH INTACT 16.9 PG/ML (18.5-88.0)
[2018-01-23 13:46] LABS: ALBUMIN 3.1 GM/DL (3.2-5.2); ANION GAP 6 MEQ/L (8-16); BLOOD UREA NITROGEN 45 MG/DL (7-18); CALCIUM LEVEL 9.8 MG/DL (8.5-10.1); CARBON DIOXIDE LEVEL 30 MEQ/L (21-32); CHLORIDE LEVEL 101 MEQ/L (98-107); CREATININE FOR GFR 1.77 MG/DL (0.70-1.30); GLOMERULAR FILTRATION RATE 42.3 (>56); MAGNESIUM LEVEL 2.2 MG/DL (1.8-2.4); PHOSPHORUS LEVEL 3.2 MG/DL (2.5-4.9); SODIUM LEVEL 137 MEQ/L (136-145)
[2018-01-23 13:51] LABS: GLUCOSE, FASTING 402 MG/DL (70-100)
[2018-01-23 14:04] LABS: CREATININE, URINE 49.4 MG/DL; MAU/CREAT RATIO 3218.6 MCG/MG (0.0-30.0)
== END ==
LOC: M LAB REF 12:29
DX: N18.3 Chronic kidney disease, stage 3 (moderate) (principal); D64.9 Anemia, unspecified; E11.22 Type 2 diabetes mellitus with diabetic chronic kidney disease

== ENCOUNTER → 2018-05-29 | Outpatient (CLI) | payer MEDICAID | LOC: M CLY 14:51 | DX: J98.11 Atelectasis (principal); J45.909 Unspecified asthma, uncomplicated ==

== ENCOUNTER 2018-09-12 11:30 | Emergency (ER) | payer MEDICAID ==
[~2018-09-12] VITALS: Ht 167.6 cm; Wt 115.5 kg
[~2018-09-12 11:30] MED LIST changes: -/PRAV20TA PO; -/PREG100CA PO; +ANOR1AER INH; +ASPI81TAEC PO; +EPIP0.3I2 INJ; +FURO40TA2 PO; +IBUPOTC PO; +IPRA0.00 INH; +LEVA750T7 PO; +LYRI100C PO; +LYRI300C PO; +METO-1 PO; +PRAV1TAB39 PO; +PRAV40TA2 PO; +SPIR-10 PO; -TOPR25TA PO; +VITMTA PO; +ZYLO300T6 PO
[2018-09-12] MEDS ORDERED: TORS20TA2 (11:45)
[2018-09-12] MEDS ORDERED: NOVOINJ3 (11:45)
[2018-09-12] MEDS ORDERED: COLC1TAB13 (11:45)
[2018-09-12] MEDS ORDERED: OMEP-218 (11:45)
[2018-09-12 12:34] LABS: VENOUS BASE EXCESS 7.3 (-2.0-2.0); VENOUS HCO3 35.3 MEQ/L (23.0-27.0); VENOUS O2 SATURATION 83.4 % (60.0-80.0); VENOUS PARTIAL PRESSURE CO2 67.7 mmHg (38.0-50.0); VENOUS PARTIAL PRESSURE O2 52.1 mmHg (30.0-50.0); VENOUS PH 7.335 UNITS (7.330-7.430); VENOUS STANDARD HCO3 30.8 MEQ/L; VENOUS TOTAL CO2 37.4 MEQ/L (24.0-28.0)
[2018-09-12 12:41] LABS: BASO % 0.9 % (0.0-1.0); EOS # 0.2 10^3/uL (0.0-0.50); EOS % 7.5 % (0.0-3.0); HEMATOCRIT 37.6 % (42.0-52.0); HEMOGLOBIN 11.7 g/dl (13.5-17.5); LYMPH % 31.2 % (24.0-44.0); MEAN CORPUSCULAR HEMOGLOBIN 28.3 pg (27.0-33.0); MEAN CORPUSCULAR HGB CONC 31.1 g/dl (32.0-36.5); MEAN CORPUSCULAR VOLUME 90.8 fl (80.0-96.0); MONO # 0.5 10^3/uL (0.0-0.8); MONO % 15.6 % (0.0-5.0); NEUTROPHILS # 1.4 10^3/uL (1.8-7.7); NEUTROPHILS % 44.5 % (36.0-66.0); PLATELET COUNT, AUTOMATED 181 10^3/uL (150-450); RED BLOOD COUNT 4.14 10^6/uL (4.30-6.10); WHITE BLOOD COUNT 3.2 10^3/uL (4.0-10.0)
[2018-09-12 13:10] LABS: ALBUMIN 2.8 GM/DL (3.2-5.2); BILIRUBIN,DIRECT 0.1 MG/DL (0.0-0.2); BILIRUBIN,TOTAL 0.5 MG/DL (0.2-1.0); CALCIUM LEVEL 8.7 MG/DL (8.5-10.1); CREATININE FOR GFR 1.69 MG/DL (0.70-1.30); GLOMERULAR FILTRATION RATE 44.4 (>56); MB/CK RELATIVE INDEX 2.47 (< OR =4); THYROID STIMULATING HORMONE 1.87 uIU/ML (0.358-3.740); TOTAL PROTEIN 6.4 GM/DL (6.4-8.2); TROPONIN I 0.03 NG/ML (< 0.10)
[2018-09-12 13:28] LABS: INFLUENZA A AMPLIFICATION NEGATIVE (NEGATIVE); INFLUENZA B AMPLIFICATION NEGATIVE (NEGATIVE)
--- NOTE | 2018-09-12 13:47 | REP ---
CHEST, PORTABLE: AP portable view of the chest is performed and compared to a prior study of 05/29/2018. There is elevation of the right hemidiaphragm again noted with mild discoid atelectasis in the right lung base. No new infiltrate is seen. The heart and mediastinum appears somewhat magnified by AP portable technique. IMPRESSION: No acute infiltrate. Mild to moderate elevation of the right hemidiaphragm with mild right basilar discoid atelectasis. Electronically Signed by Jose Alfredo Trujillo MD 09/12/2018 04:54 P
[2018-09-12] MEDS ORDERED: DEXTROSE 50% 50 ML SYRINGE IV STA (13:48)
[2018-09-12 15:09] LABS: ABG BASE EXCESS 1.4 (-2.0-2.0); ABG HCO3 28.4 MEQ/L (22.0-26.0); ABG O2 SATURATION 87.6 % (95.0-99.0); ABG PARTIAL PRESSURE CO2 55.6 mmHg (35.0-45.0); ABG PARTIAL PRESSURE O2 59.8 mmHg (75.0-100.0); ABG STANDARD HCO3 25.5 MEQ/L (22.0-26.0); ABG TOTAL CO2 30.1 MEQ/L (22.0-29.0); ABG pH (ARTERIAL) 7.326 UNITS (7.350-7.450)
[2018-09-12 16:47] VITALS: O2SAT 97
[2018-09-12 17:00] VITALS: BP 132/74
--- NOTE | 2018-09-13 10:14 | ECGEPIP ---
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
== END 2018-09-12 17:18 | disposition home or self-care (01) ==
LOC: M ED 11:30
DX: J44.9 Chronic obstructive pulmonary disease, unspecified (principal); G47.33 Obstructive sleep apnea (adult) (pediatric); N18.3 Chronic kidney disease, stage 3 (moderate); Z91.19 Patient's noncompliance with other medical treatment and regimen; I87.2 Venous insufficiency (chronic) (peripheral); I13.0 Hypertensive heart and chronic kidney disease with heart failure and stage 1 through stage 4 chronic kidney disease, or unspecified chronic kidney disease; I50.9 Heart failure, unspecified; E11.9 Type 2 diabetes mellitus without complications; M10.9 Gout, unspecified; K21.9 Gastro-esophageal reflux disease without esophagitis; Z79.82 Long term (current) use of aspirin; Z79.4 Long term (current) use of insulin; Z79.899 Other long term (current) drug therapy; Z87.891 Personal history of nicotine dependence; Z91.030 Bee allergy status; Z91.041 Radiographic dye allergy status; Z91.013 Allergy to seafood; Z88.9 Allergy status to unspecified drugs, medicaments and biological substances